=== PATIENT | male | born 1950 | race Caucasian/White ===

== ENCOUNTER 2017-07-28 13:00 | Day surgery (SDC) | payer OTHER ==
[2017-07-28] MEDS ORDERED: MEPERIDINE 25 MG/ML SYR IVP PRN (13:13)
[2017-07-28] MEDS ORDERED: NALOXONE HCL 0.4 MG/ML INJ IVP PRN (13:13)
[2017-07-28] MEDS ORDERED: FLUMAZENIL 0.5 MG/5 ML MDV IVP PRN (13:13)
[2017-07-28] MEDS ORDERED: MIDAZOLAM 2 MG/2 ML VIAL IVP PRN (13:13)
[2017-07-28] MEDS ORDERED: fentaNYL 100 MCG/2 ML INJ IVP PRN (13:13)
[2017-07-28] MEDS ORDERED: NS 1,000 ML IV SCH (13:15)
[2017-07-28 13:59] VITALS: PULSE 66; RESP 16
--- NOTE | 2017-07-28 14:43 | PDPROPOC ---
Sedation Plan of Care ASA Classification: ASA 3 Planned drugs: fentanyl, midazolam Mallampati Score: Class 3 Mallampati Reference Image: Patient passed 3-3-2 rule?: Yes
[2017-07-28] MEDS ORDERED: HEPARIN 50,000 UNIT/10 ML VIAL ONE (14:45)
--- NOTE | 2017-07-28 14:47 | PDGENHP ---
History & Physical Chief Complaint: prostate CA History of Present Illness: Metastatic to lymph nodes Pertinent Past, Social, Family History: No problems from previous anesthetic. Cardiorespiratory Assessment: Lungs: clear to auscultation. Heart: RRR 68 bpm , distant sounds.
[2017-07-28] MEDS ORDERED: LIDOCAINE 1% 300 MG/30 ML SDV ONE (14:50)
[2017-07-28] MEDS ORDERED: ONDANSETRON 4 MG/2 ML VIAL ONE (16:08)
--- NOTE | 2017-07-28 16:29 | PDRADPN ---
Radiology Procedure Note Date of Procedure: 07/28/17 Radiologist: Corona Milton Anesthesia: IV Sedation Pre-op Diagnosis: Prostate CA Post-op Diagnosis: same Indication: Chemotherapy requirement Procedure: Right jugular tunneled dialysis catheter Finding(s): Good position, ready to use, tolerated well. Inf/Abcess present in the surg proc area at time of surgery?: No EBL: Minimal Complications: 0
[2017-07-28] MEDS ORDERED: ONDANSETRON 4 MG/2 ML VIAL IVP PRN (16:30)
[2017-07-28] MEDS ORDERED: ACETAMINOPHEN 325 MG TAB PO PRN (16:30)
[2017-07-28 17:07] VITALS: BP 131/86; TEMP 97.7; O2SAT 94
== END 2017-07-28 17:06 | disposition home or self-care (01) ==
LOC: FIMAGING 13:00
PROVIDERS: ATTEND Radiology Diagnostic Radiology
PROC: B5181ZZ Fluoroscopy of Superior Vena Cava using Low Osmolar Contrast (ICD-10-PCS; principal; 2017-07-28 16:03)
PROC: 02HV33Z Insertion of Infusion Device into Superior Vena Cava, Percutaneous Approach (ICD-10-PCS; principal; 2017-07-28 16:03)
DX: C61 Malignant neoplasm of prostate (principal); C79.51 Secondary malignant neoplasm of bone
CPT/HCPCS: J1644; J2250; J2310; J2405; J3010

== ENCOUNTER 2017-08-17 12:03 | Day surgery (SDC) | payer OTHER ==
[2017-08-17] MEDS ORDERED: MIDAZOLAM 2 MG/2 ML VIAL IVP PRN (13:02)
[2017-08-17] MEDS ORDERED: NALOXONE HCL 0.4 MG/ML INJ IVP PRN (13:02)
[2017-08-17] MEDS ORDERED: fentaNYL 100 MCG/2 ML INJ IVP PRN (13:02)
[2017-08-17] MEDS ORDERED: FLUMAZENIL 0.5 MG/5 ML MDV IVP PRN (13:02)
[2017-08-17 13:10] VITALS: PULSE 80; RESP 16; TEMP 98.6
[2017-08-17] MEDS ORDERED: NS 1,000 ML IV SCH (13:15)
[2017-08-17] MEDS ORDERED: ONDANSETRON 4 MG/2 ML VIAL IVP PRN (14:00)
[2017-08-17] MEDS ORDERED: ACETAMINOPHEN 325 MG TAB PO PRN (14:00)
--- NOTE | 2017-08-17 15:27 | PDGENHP ---
History & Physical Chief Complaint: Prostate ca History of Present Illness: 67 yo M w prostate ca s/p PROVENGE therapy here for TDC removal. Placed 07/28/2017. Pertinent Past, Social, Family History: Non-contributory Relevant Physical Exam: Rt IJ TDC in place, small blood around cath exit site, no redness, swelling, induration or pain with palpation around the tunnel Cardiorespiratory Assessment: RRR, normal resp effort
[2017-08-17 15:53] VITALS: BP 116/65; O2SAT 93
--- NOTE | 2017-08-17 16:00 | PDPROPOC ---
Sedation Plan of Care Sedation Plan of Care: vital signs stable, mental status noted, patient educated of risks, benefits, alternatives, patient can tolerate sedation ASA Classification: ASA 3 Planned drugs: fentanyl, midazolam Mallampati Score: Class 4 Mallampati Reference Image: Patient passed 3-3-2 rule?: Yes
--- NOTE | 2017-08-17 16:02 | PDRADPN ---
Radiology Procedure Note Date of Procedure: 08/17/17 Radiologist: Galindo Matias Anesthesia: IV Sedation Pre-op Diagnosis: Prostate ca Post-op Diagnosis: Same Indication: Completed therapy Procedure: TDC removal Finding(s): See dictated report Inf/Abcess present in the surg proc area at time of surgery?: No EBL: Minimal Complications: No immediate Specimen(s): None taken
== END 2017-08-17 15:15 | disposition home or self-care (01) ==
LOC: FIMAGING 12:03
PROVIDERS: ATTEND Physician Assistant Medical
PROC: 02PYX3Z Removal of Infusion Device from Great Vessel, External Approach (ICD-10-PCS; principal; 2017-08-17 14:10)
DX: Z45.2 Encounter for adjustment and management of vascular access device (principal); C61 Malignant neoplasm of prostate; C79.51 Secondary malignant neoplasm of bone; C77.2 Secondary and unspecified malignant neoplasm of intra-abdominal lymph nodes
CPT/HCPCS: J2250; J3010